=== PATIENT | male | born 1960 | race American Indian/Alaskan Native ===

== ENCOUNTER 2018-12-12 22:24 | Emergency (ER) | payer MEDICARE ==
[2018-12-13 04:01] VITALS: BP 156/98
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
== END 2018-12-13 04:49 | disposition home or self-care (01) ==
LOC: ED 22:24
DX: M25.562 Pain in left knee (principal); I10 Essential (primary) hypertension
CPT/HCPCS: 99281; 99282

== ENCOUNTER 2019-05-26 12:31 | Emergency (ER) | payer MEDICARE ==
[2019-05-26 12:45] VITALS: BP 120/85
[2019-05-26] MEDS ORDERED: IBUPROFEN PO ONE (14:17)
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
--- NOTE | 2019-05-26 15:26 | XRay Report ---
RIGHT ANKLE 3 VIEW(S) INDICATION / CLINICAL INFORMATION: Pain after near fall after twisting ankle about a week ago COMPARISON: None available. FINDINGS: BONES / JOINT(S): No acute fracture or subluxation. No significant arthritis. SOFT TISSUES: Mild lateral ankle soft tissue swelling. ADDITIONAL FINDINGS: None. Signer Name: Yecenia Interiano MD Signed: 05/26/2019 3:22 PM Workstation Name: [id number]
== END 2019-05-26 15:14 | disposition home or self-care (01) ==
LOC: ED 12:31
DX: S93.401A Sprain of unspecified ligament of right ankle, initial encounter (principal); I10 Essential (primary) hypertension; Z79.1 Long term (current) use of non-steroidal anti-inflammatories (NSAID); X58.XXXA Exposure to other specified factors, initial encounter; Y93.01 Activity, walking, marching and hiking; Y92.89 Other specified places as the place of occurrence of the external cause; Y99.8 Other external cause status